=== PATIENT | female | born 1965 | race Caucasian/White ===

== ENCOUNTER 2022-01-30 09:51 | Outpatient (CLI) | payer BC | END 2022-01-30 09:52 | disposition home or self-care (01) | LOC: CSHMAMMO 09:51 | PROVIDERS: ATTEND Nurse Practitioner Family | DX: Z12.31 Encounter for screening mammogram for malignant neoplasm of breast (principal); M81.0 Age-related osteoporosis without current pathological fracture | CPT/HCPCS: 77063; 77067; 77080 ==

== ENCOUNTER 2022-01-31 13:20 | Outpatient (CLI) | payer BC | END 2022-01-31 13:21 | disposition home or self-care (01) | LOC: CSHMAMMO 13:20 | PROVIDERS: ATTEND Nurse Practitioner Family | DX: Q83.8 Other congenital malformations of breast (principal); N64.89 Other specified disorders of breast | CPT/HCPCS: G0279 ==